=== PATIENT | male | born 1965 | race Caucasian/White ===

== ENCOUNTER 2017-06-02 23:29 | Emergency (ER) | payer OTHER ==
[~2017-06-02] VITALS: Ht 198.1 cm; Wt 179.2 kg
[~2017-06-02 23:29] MED LIST: AMLODIPINE BESYL5 MG PO; CRESTOR10 MG PO; Cipro PO; LEVAQUIN750 MG PO; LOSARTAN POTAS100 MG PO; PYRIDIUM DS200 MG PO; TRAM1TAB98 PO; ULTRACET PO; ULTRAM50 MG; VIAGRA100 MG; VITAMIN D2000 UNI1
[2017-06-02] MEDS ORDERED: TOPROL XL200 MG (23:41)
[2017-06-02] MEDS ORDERED: ADULT ASPIRIN81 MG (23:42)
[2017-06-03] MEDS ORDERED: PERCOCET 5-3251 EACH PO (11:22)
== END 2017-06-03 11:34 | disposition home or self-care (01) ==
LOC: ER 23:29
DX: I80.9 Phlebitis and thrombophlebitis of unspecified site (principal); M79.661 Pain in right lower leg

== ENCOUNTER → 2017-07-02 12:31 | Outpatient (CLI) | payer OTHER ==
[~2017-07-02 12:31] MED LIST changes: +ADULT ASPIRIN81 MG; +PERCOCET 5-3251 EACH PO; +TOPROL XL200 MG
== END | disposition home or self-care (01) ==
LOC: LAB 12:31
DX: E78.2 Mixed hyperlipidemia (principal); R73.01 Impaired fasting glucose; I10 Essential (primary) hypertension; E03.8 Other specified hypothyroidism; E66.9 Obesity, unspecified; Z20.2 Contact with and (suspected) exposure to infections with a predominantly sexual mode of transmission

== ENCOUNTER → 2017-12-17 12:26 | Outpatient (CLI) | payer OTHER | END | disposition home or self-care (01) | LOC: LAB 12:26 | DX: R73.02 Impaired glucose tolerance (oral) (principal); E78.2 Mixed hyperlipidemia; I10 Essential (primary) hypertension; R80.8 Other proteinuria; E03.8 Other specified hypothyroidism ==

== ENCOUNTER 2018-01-11 15:52 | Emergency (ER) | payer OTHER ==
[~2018-01-11] VITALS: Ht 198.1 cm; Wt 179.2 kg
[2018-01-11] MEDS ORDERED: AVAPRO300 MG (16:14)
[2018-01-11] MEDS ORDERED: HYDROCHLOROTH12.5 M1 (16:14)
[2018-01-11] MEDS ORDERED: ANDRODERM1 EACH (16:15)
[2018-01-11] MEDS ORDERED: FENOFIBRATE145 MG (16:15)
[2018-01-11] MEDS ORDERED: DOXAZOSIN MESYLA1 MG (16:15)
[2018-01-11] MEDS ORDERED: CLARITIN-D 241 EACH (16:16)
[2018-01-11] MEDS ORDERED: PEPCID AC20 MG (16:16)
[2018-01-11] MEDS ORDERED: FLONASE ALLERG9.9 ML (16:17)
== END 2018-01-11 20:34 | disposition home or self-care (01) ==
LOC: ER 15:52
DX: K61.0 Anal abscess (principal)

== ENCOUNTER 2018-01-12 17:53 | Inpatient (IN) | payer OTHER ==
[~2018-01-12] VITALS: Ht 198.1 cm; Wt 179.2 kg
[~2018-01-12 17:53] MED LIST changes: +ANDRODERM1 EACH; +AVAPRO300 MG; +CLARITIN-D 241 EACH; +DOXAZOSIN MESYLA1 MG; +FENOFIBRATE145 MG; +FLONASE ALLERG9.9 ML; +HYDROCHLOROTH12.5 M1; +PEPCID AC20 MG
[2018-01-14] MEDS ORDERED: PERCOCET 5-3251 EACH PO (08:23)
[2018-01-14] MEDS ORDERED: INTESTINEX680 M1 PO (08:23)
[2018-01-14] MEDS ORDERED: BACTRIM DS TAB1 EACH PO (08:23)
[2018-01-14] MEDS ORDERED: DOXYCYCLINE HY100 MG PO (08:28)
== END 2018-01-14 19:10 | disposition home or self-care (01) | DRG 331 ==
LOC: ER 17:53 → SURH 21:32
PROVIDERS: Surgery
PROC: 0J9B3ZX Drainage of Perineum Subcutaneous Tissue and Fascia, Percutaneous Approach, Diagnostic (ICD-10-PCS; 2018-01-13)
PROC: 3E0T3BZ Introduction of Anesthetic Agent into Peripheral Nerves and Plexi, Percutaneous Approach (ICD-10-PCS; 2018-01-13)
PROC: 0DJD7ZZ Inspection of Lower Intestinal Tract, Via Natural or Artificial Opening (ICD-10-PCS; 2018-01-13)
PROC: 0DQP7ZZ Repair Rectum, Via Natural or Artificial Opening (ICD-10-PCS; principal; 2018-01-13 15:15)
DX: K61.3 Ischiorectal abscess (principal); K62.89 Other specified diseases of anus and rectum; B96.29 Other Escherichia coli [E. coli] as the cause of diseases classified elsewhere; B96.6 Bacteroides fragilis [B. fragilis] as the cause of diseases classified elsewhere; B96.89 Other specified bacterial agents as the cause of diseases classified elsewhere

== ENCOUNTER 2018-04-23 13:40 | Outpatient (CLI) | payer OTHER ==
[~2018-04-23 13:40] MED LIST changes: +BACTRIM DS TAB1 EACH PO; +DOXYCYCLINE HY100 MG PO; +INTESTINEX680 M1 PO
== END 2018-04-23 14:22 | disposition home or self-care (01) ==
LOC: LAB 13:40
DX: N39.0 Urinary tract infection, site not specified (principal); Z11.3 Encounter for screening for infections with a predominantly sexual mode of transmission; I10 Essential (primary) hypertension; R80.9 Proteinuria, unspecified; E78.2 Mixed hyperlipidemia; N18.3 Chronic kidney disease, stage 3 (moderate); R73.02 Impaired glucose tolerance (oral); E79.0 Hyperuricemia without signs of inflammatory arthritis and tophaceous disease; N40.0 Benign prostatic hyperplasia without lower urinary tract symptoms; E29.1 Testicular hypofunction; D64.89 Other specified anemias; Z11.4 Encounter for screening for human immunodeficiency virus [HIV]

== ENCOUNTER 2019-02-25 14:28 | Inpatient (IN) | payer OTHER ==
[~2019-02-25] VITALS: Ht 198.1 cm; Wt 176.9 kg
--- NOTE | 2019-02-25 14:43 | NUR ---
PACIENTE ALERETA Y ORIENTADO REFIERE TENER DOLOR ABDOMINAL DESDE HOY EN LA MANANA, SE UBICA EN AREA DE OBSERVACION.
--- NOTE | 2019-02-25 15:45 | NUR ---
PACEINTE ALERTA Y ORIENTADO POR MAX ESFERAS. SE ORIENTA A PACIENTE SOBRE PROCEDIMIENTO Y TX, REFIERE ENTENDER. SE EXTRAE MUSTRAS DE LABORATORIO CON MEDIDAS ASEPTICAS Y SE ADMINISTRA MEDICAMENTOS SHIRIN ORDEN MEDICA. SE ADMINISTRA DEMEROL 50MG IM EN GLUTEO RT.
--- NOTE | 2019-02-25 23:32 | NUR ---
PTE ALERTA Y ORIENTADO X 3 ESFERAS EN CAMA CON BARANDAS ELEVADAS,SIN FAMILIAR AL MOMENTO DE LA GUS,AREA DE VENOPUNCION PATENTE Y JEREMIAH DE EDEMA CON FLUIDOS DE MANTENIMIENTO BAJANDO SIN DIFICULTAD,PTE NO REFIERE DOLOR,PENDIENTE A EVALUACION DE DRA Shabana KUMARI.
--- NOTE | 2019-02-26 07:28 | NUR ---
PTE ALERTAS Y ORIENTADO X3 EN DEJAN CON BARADNAS ELEVADAS. PTE SE OBSERVA CON 0.9NSS BAJANDO A 125ML/HR. PTE EN ESPERA DE CONSULTA CON DRA. MULLIGAN. PTE SE CONTINUA MONITORIANDO POR CAMBIOS EN STANLEY CONDICION..
[2019-03-01] MEDS ORDERED: CIPROFLOXACIN750 MG PO (17:02)
[2019-03-01] MEDS ORDERED: FLAGYL500MG PO (17:03)
== END 2019-03-01 18:47 | disposition home or self-care (01) | DRG 392 ==
LOC: ER 14:28 → SEC-K 02-26 07:55 → SURG 02-26 07:55
PROVIDERS: ADMIT Internal Medicine
DX: K57.32 Diverticulitis of large intestine without perforation or abscess without bleeding (principal)

== ENCOUNTER 2019-03-31 20:01 | Inpatient (IN) | payer OTHER ==
[~2019-03-31] VITALS: Ht 30.5 cm; Wt 6.0 kg
[~2019-03-31 20:01] MED LIST changes: +CIPROFLOXACIN750 MG PO; +FLAGYL500MG PO
[2019-04-04] MEDS ORDERED: FLAGYL500MG PO (13:19)
[2019-04-04] MEDS ORDERED: BACTRIM DS TAB1 EACH PO (13:19)
[2019-04-04] MEDS ORDERED: ENDOCET 5-3251 EACH PO (13:24)
== END 2019-04-04 14:18 | disposition home or self-care (01) | DRG 392 ==
LOC: ER 20:01 → SURH 04-01 13:02 → MEDJ 04-02 14:09
PROVIDERS: ADMIT Internal Medicine
PROC: B54MZZZ Ultrasonography of Right Upper Extremity Veins (ICD-10-PCS; principal; 2019-04-01)
PROC: BW40ZZZ Ultrasonography of Abdomen (ICD-10-PCS; 2019-04-01)
DX: K57.32 Diverticulitis of large intestine without perforation or abscess without bleeding (principal); I82.601 Acute embolism and thrombosis of unspecified veins of right upper extremity; Q60.0 Renal agenesis, unilateral; G47.33 Obstructive sleep apnea (adult) (pediatric); E66.09 Other obesity due to excess calories; K76.0 Fatty (change of) liver, not elsewhere classified; N28.1 Cyst of kidney, acquired; I10 Essential (primary) hypertension

== ENCOUNTER 2019-07-22 12:38 | Outpatient (CLI) | payer OTHER ==
[~2019-07-22 12:38] MED LIST changes: +ENDOCET 5-3251 EACH PO
== END 2019-07-22 12:49 | disposition home or self-care (01) ==
LOC: LAB 12:38
DX: K57.30 Diverticulosis of large intestine without perforation or abscess without bleeding (principal); R10.32 Left lower quadrant pain

== ENCOUNTER 2019-07-23 17:28 | Inpatient (IN) | payer OTHER ==
[~2019-07-23] VITALS: Ht 198.1 cm; Wt 170.1 kg
[2019-07-26] MEDS ORDERED: ATACAND HCT 321 EAC1 (08:09)
== END 2019-07-27 14:18 | disposition home or self-care (01) | DRG 392 ==
LOC: ER 17:28 → MEDJ 07-24 13:04
PROVIDERS: ADMIT Internal Medicine
DX: K57.20 Diverticulitis of large intestine with perforation and abscess without bleeding (principal); Q60.0 Renal agenesis, unilateral; I10 Essential (primary) hypertension; E66.9 Obesity, unspecified; G47.33 Obstructive sleep apnea (adult) (pediatric)

== ENCOUNTER 2021-07-06 10:20 | Outpatient (CLI) | payer OTHER ==
[~2021-07-06 10:20] MED LIST changes: +ATACAND HCT 321 EAC1
== END 2021-07-06 10:34 | disposition home or self-care (01) ==
LOC: RX STUDY 10:20
PROVIDERS: ATTEND Internal Medicine
DX: G47.31 Primary central sleep apnea (principal); K21.00 Gastro-esophageal reflux disease with esophagitis, without bleeding

== ENCOUNTER → 2021-10-01 | Emergency (ER) | payer OTHER ==
[~2021-10-01] VITALS: Ht 198.1 cm; Wt 127.0 kg
[~2021-10-01] MED LIST changes: +ECOTRIN325 M1 PO; +FENOFIBRATE160 MG PO; +GLUMETZA500 MG PO; +IRBESARTAN-HCT1 EAC1 PO; +SILDENAFIL20 MG PO; +TOPROL XL200 MG PO; +ZANAFLEX4 M1 PO
== END | disposition home or self-care (01) ==
LOC: ER 21:54
DX: M25.562 Pain in left knee (principal); Z88.0 Allergy status to penicillin; Z88.8 Allergy status to other drugs, medicaments and biological substances

== ENCOUNTER 2022-06-18 18:09 | Inpatient (IN) | payer OTHER ==
[~2022-06-18] VITALS: Ht 198.1 cm; Wt 158.8 kg
--- NOTE | 2022-06-18 18:19 | NUR ---
REBECCA IS RECIEVED SAYING THAT HE HAS AN ABCESS ON LEFT GLUTE SINCE LAST MONTH.
[2022-06-19] MEDS ORDERED: OMEGA-3 ACID ETH1 GM (11:21)
[2022-06-19] MEDS ORDERED: ROSUVASTATIN CA10 MG (11:21)
[2022-06-24] MEDS ORDERED: KETO10TA2 PO (18:24)
== END 2022-06-24 21:34 | disposition home or self-care (01) | DRG 603 ==
LOC: ER 18:09 → MEDI 22:41 → MEDJ 06-20 15:03
PROVIDERS: ADMIT Internal Medicine; ATTEND Internal Medicine
PROC: 8E0ZXY6 Isolation (ICD-10-PCS; principal; 2022-06-20)
DX: L02.31 Cutaneous abscess of buttock (principal); Z68.41 Body mass index [BMI] 40.0-44.9, adult; Q60.2 Renal agenesis, unspecified; L98.419 Non-pressure chronic ulcer of buttock with unspecified severity; L03.317 Cellulitis of buttock; B95.62 Methicillin resistant Staphylococcus aureus infection as the cause of diseases classified elsewhere; E11.9 Type 2 diabetes mellitus without complications; I10 Essential (primary) hypertension; E66.01 Morbid (severe) obesity due to excess calories; E78.5 Hyperlipidemia, unspecified; G47.33 Obstructive sleep apnea (adult) (pediatric); Z79.84 Long term (current) use of oral hypoglycemic drugs; Z87.891 Personal history of nicotine dependence